=== PATIENT | female | born 1995 | race Caucasian/White ===

== ENCOUNTER 2021-02-27 06:05 | Inpatient (IN) | payer OTHER ==
[2021-02-27 06:31] VITALS: BMI 41.1
[2021-02-27] MEDS ORDERED: ONDANSETRON 4 MG/2 ML VIAL IVPUSH PRN (07:48)
[2021-02-27] MEDS ORDERED: morphine SULFATE/PF 1 MG/2 ML (2cc Syringe - QUVA) EP ONE (07:48)
[2021-02-27] MEDS ORDERED: morphine SULFATE/PF 1 MG/2 ML (2cc Syringe - QUVA) ONE (07:59)
[2021-02-27] MEDS ORDERED: ceFAZolin SODIUM 1 GM VIAL ONE (07:59)
[2021-02-27] MEDS ORDERED: CITRIC ACID/SODIUM CITRATE 30 ML UNIT-DOSE CUP PO ONE (08:07)
[2021-02-27] MEDS ORDERED: ELECTROLYTE-148 SOLN 1,000 ML IV SCH (08:15)
[2021-02-27] MEDS ORDERED: PHENYLEPHRINE HCL 10 MG/1 ML SINGLE DOSE VIAL ONE (08:22)
[2021-02-27] MEDS ORDERED: OXYTOCIN 10 UNITS/ML VIAL ONE ×3 (08:30→08:41)
[2021-02-27] MEDS: OXYTOCIN 20 UNITS in 0.9% NS 20 UNIT/1,000 ML INFUS.BAG IV SCH ×3 (08:50→17:48)
[2021-02-27] MEDS ORDERED: MIDAZOLAM HCL 2 MG/2 ML SINGLE DOSE VIAL ONE (09:03)
[2021-02-27] MEDS ORDERED: SIMETHICONE 80 MG TAB.CHEW (FP) PO PRN (09:16)
[2021-02-27] MEDS ORDERED: SENNOSIDES/DOCUSATE COMBO (SENNA PLUS) TABLET (UD) PO PRN (09:16)
[2021-02-27] MEDS ORDERED: ONDANSETRON 4 MG/2 ML VIAL IVPB PRN (09:16)
[2021-02-27] MEDS ORDERED: IBUPROFEN 800 MG/8 ML IJ IVPB PRN (09:16)
[2021-02-27] MEDS ORDERED: oxyCODONE HCL 5 MG TABLET PO PRN (09:16)
[2021-02-27] MEDS: ACETAMINOPHEN 1000 MG/100 ML VIAL IVPB PRN (16:51)
[2021-02-27] MEDS: CEFAZOLIN 2 GM in DEXTROSE 5%-WATER - 100 ML IVPB SCH ×2 (18:03→23:27)
[2021-02-28] MEDS: ACETAMINOPHEN 1000 MG/100 ML VIAL IVPB PRN (06:18)
[2021-02-28 07:41] LABS: BASO % 0.3 % (0-2.0); EOS % 0.2 % (0-4.5); HEMATOCRIT 35.4 % (32.4-45.2); HEMOGLOBIN 11.9 GM/dL (10.7-15.3); LYMPH % 11.8 % (8-40); MCHC 33.5 g/dl (32.0-36.0); MEAN CELL VOLUME 83.6 fl (80-96); MEAN PLT VOLUME 10.3 fl (7.5-11.1); MONO % 7.4 % (3.8-10.2); NEUT % 80.3 % (42.8-82.8); PLATELET COUNT 148 10^3/uL (134-434); RBC 4.24 M/mm3 (3.60-5.2); RDW 14.1 % (11.6-15.6); WHITE BLOOD COUNT 15.8 K/mm3 (4.0-10.0)
[2021-02-28] MEDS ORDERED: BISACODYL 10 MG SUPP.RECT RC PRN (09:16)
[2021-02-28] MEDS ORDERED: ACETAMINOPHEN 325 MG TABLET (FP) PO PRN (09:20)
[2021-02-28] MEDS: IBUPROFEN 600 MG TABLET (FP) PO PRN (22:45)
[2021-03-01 10:40] VITALS: BP 116/78; PULSE 78; TEMP 97.7
[2021-03-01] MEDS: IBUPROFEN 600 MG TABLET (FP) PO PRN (11:16)
== END 2021-03-01 13:27 | disposition home or self-care (01) | DRG 540 ==
LOC: JLDR 06:05 → J3W 11:00
PROVIDERS: ADMIT Specialist; ATTEND Specialist
PROC: 10D00Z1 Extraction of Products of Conception, Low, Open Approach (ICD-10-PCS; principal; 2021-02-27)
DX: O34.219 Maternal care for unspecified type scar from previous cesarean delivery (principal); Z3A.39 39 weeks gestation of pregnancy; Z37.0 Single live birth
CPT/HCPCS: 36415; 85025; 88307-TC; J0131

== ENCOUNTER 2022-04-17 11:55 | Emergency (ER) | payer OTHER ==
[2022-04-17 12:30] VITALS: BP 110/76; PULSE 99; RESP 18; TEMP 98; BMI 42.9
[2022-04-17] MEDS ORDERED: SODIUM CHLORIDE 0.9% 500 ML INFUS.BAG IV ONE (13:21)
[2022-04-17 15:29] LABS: BASO % 0.2 % (0-2.0); EOS % 1.4 % (0-4.5); HEMOGLOBIN 11.6 GM/dL (10.7-15.3); LYMPH % 15.7 % (8-40); MCH 28.2 pg (25.7-33.7); MCHC 33.3 g/dl (32.0-36.0); MEAN CELL VOLUME 84.6 fl (80-96); MEAN PLT VOLUME 10.2 fl (7.5-11.1); MONO % 6.1 % (3.8-10.2); NEUT % 76.6 % (42.8-82.8); PLATELET COUNT 121 10^3/uL (134-434); RBC 4.14 M/mm3 (3.60-5.2); RDW 14.2 % (11.6-15.6); WHITE BLOOD COUNT 11.6 K/mm3 (4.0-10.0)
[2022-04-17 15:30] LABS: URINE APPEARANCE CLEAR; URINE BILIRUBIN NEGATIVE (NEGATIVE); URINE COLOR YELLOW; URINE GLUCOSE (UA) NEGATIVE (NEGATIVE); URINE KETONE TRACE (NEGATIVE); URINE LEUK ESTERASE NEGATIVE (NEGATIVE); URINE NITRITE NEGATIVE (NEGATIVE); URINE PROTEIN NEGATIVE (NEGATIVE)
[2022-04-17 15:58] LABS: CALCIUM 8.6 mg/dL (8.5-10.1)
[2022-04-17 15:59] LABS: BLOOD UREA NITROGEN 11.5 mg/dL (7-18)
[2022-04-17 16:01] LABS: CREATININE 0.4 mg/dL (0.55-1.3)
[2022-04-17 16:03] LABS: BILIRUBIN,TOTAL 0.2 mg/dL (0.2-1); TOT PROT 6.6 g/dl (6.4-8.2)
== END 2022-04-17 16:45 | disposition home or self-care (01) ==
LOC: JER 11:55
DX: O26.892 Other specified pregnancy related conditions, second trimester (principal); R42 Dizziness and giddiness; R53.83 Other fatigue; Z3A.16 16 weeks gestation of pregnancy
CPT/HCPCS: 36415; 80053; 81003; 84443; 84702; 85025; 87086; 93005; 93010; 99284-25

== ENCOUNTER 2022-09-18 12:02 | Inpatient (IN) | payer OTHER ==
[2022-09-18] MEDS ORDERED: CITRIC ACID/SODIUM CITRATE 30 ML UNIT-DOSE CUP PO ONE (12:03)
[2022-09-18] MEDS ORDERED: ELECTROLYTE-148 SOLN 500 ML IV ONE (12:03)
[2022-09-18 12:58] VITALS: BMI 44.6
[2022-09-18] MEDS ORDERED: OXYTOCIN 20 UNITS in 0.9% NS 40 UNIT/2,000 ML INFUS.BAG IV ONE (13:41)
[2022-09-18] MEDS ORDERED: ceFAZolin SODIUM 1 GM VIAL ONE (13:43)
[2022-09-18] MEDS ORDERED: ONDANSETRON 4 MG/2 ML VIAL ONE (13:43)
[2022-09-18] MEDS ORDERED: morphine SULFATE/PF 1 MG/2 ML (2cc Syringe - QUVA) ONE (13:43)
[2022-09-18] MEDS ORDERED: DEXAMETHASONE SOD PHOSPHATE 4 MG/1 ML VIAL ONE (13:43)
[2022-09-18] MEDS ORDERED: METHYLERGONOVINE MALEATE 0.2 MG/1 ML AMP IM PRN (13:47)
[2022-09-18] MEDS ORDERED: OXYTOCIN 10 UNITS/ML VIAL ONE (13:55)
[2022-09-18] MEDS ORDERED: ONDANSETRON 4 MG/2 ML VIAL IVPUSH PRN (15:29)
[2022-09-18] MEDS: OXYTOCIN 20 UNITS in 0.9% NS 20 UNIT/1,000 ML INFUS.BAG IV SCH (16:45)
[2022-09-18] MEDS: IBUPROFEN 800 MG/8 ML IJ IVPB SCH ×2 (17:18→23:19)
[2022-09-18] MEDS: ACETAMINOPHEN 1000 MG/100 ML BAG IVPB SCH (17:49)
[2022-09-19] MEDS ORDERED: oxyCODONE HCL 5 MG TABLET PO PRN ×2 (01:47)
[2022-09-19] MEDS: OXYTOCIN 20 UNITS in 0.9% NS 20 UNIT/1,000 ML INFUS.BAG IV SCH (02:25)
[2022-09-19] MEDS: ACETAMINOPHEN 1000 MG/100 ML BAG IVPB SCH ×2 (02:29→09:21)
[2022-09-19] MEDS: IBUPROFEN 800 MG/8 ML IJ IVPB SCH ×2 (07:03→14:00)
[2022-09-19 08:29] LABS: BASO % 0.1 % (0-2.0); EOS % 0.1 % (0-4.5); HEMATOCRIT 30.7 % (32.4-45.2); HEMOGLOBIN 10.4 GM/dL (10.7-15.3); LYMPH % 12.9 % (8-40); MCH 27.7 pg (25.7-33.7); MCHC 33.7 g/dl (32.0-36.0); MEAN CELL VOLUME 82.1 fl (80-96); MEAN PLT VOLUME 10.2 fl (7.5-11.1); MONO % 7.3 % (3.8-10.2); NEUT % 79.6 % (42.8-82.8); PLATELET COUNT 128 10^3/uL (134-434); RBC 3.75 M/mm3 (3.60-5.2); RDW 14.3 % (11.6-15.6); WHITE BLOOD COUNT 16.1 K/mm3 (4.0-10.0)
[2022-09-19] MEDS: PRENATAL VITAMINS W/ FOLIC ACID TABLET (FP) PO SCH (09:21)
[2022-09-19] MEDS ORDERED: BISACODYL 10 MG SUPP.RECT RC PRN (13:47)
[2022-09-19] MEDS: SIMETHICONE 80 MG TAB.CHEW (FP) PO PRN (21:58)
[2022-09-19] MEDS: ACETAMINOPHEN 325 MG TABLET (FP) PO PRN (21:59)
[2022-09-19 23:25] VITALS: RESP 18
[2022-09-20] MEDS: PRENATAL VITAMINS W/ FOLIC ACID TABLET (FP) PO SCH (09:13)
[2022-09-20] MEDS: IBUPROFEN 600 MG TABLET (FP) PO PRN ×2 (09:13→17:09)
[2022-09-20] MEDS: SIMETHICONE 80 MG TAB.CHEW (FP) PO PRN ×2 (09:13→17:09)
[2022-09-21] MEDS: SIMETHICONE 80 MG TAB.CHEW (FP) PO PRN (03:17)
[2022-09-21] MEDS: IBUPROFEN 600 MG TABLET (FP) PO PRN (03:17)
[2022-09-21 08:33] LABS: BASO % 0.3 % (0-2.0); HEMATOCRIT 30.9 % (32.4-45.2); LYMPH % 23.3 % (8-40); MCH 27.5 pg (25.7-33.7); MCHC 32.5 g/dl (32.0-36.0); MEAN CELL VOLUME 84.8 fl (80-96); MEAN PLT VOLUME 10.7 fl (7.5-11.1); MONO % 7.9 % (3.8-10.2); NEUT % 66.5 % (42.8-82.8); PLATELET COUNT 97 10^3/uL (134-434); RBC 3.64 M/mm3 (3.60-5.2); RDW 14.4 % (11.6-15.6); WHITE BLOOD COUNT 7.8 K/mm3 (4.0-10.0)
[2022-09-21] MEDS: ACETAMINOPHEN 325 MG TABLET (FP) PO PRN (09:44)
[2022-09-21] MEDS: PRENATAL VITAMINS W/ FOLIC ACID TABLET (FP) PO SCH (09:44)
[2022-09-21 09:52] VITALS: BP 115/78; PULSE 83; TEMP 97.5
== END 2022-09-21 13:55 | disposition home or self-care (01) | DRG 540 ==
LOC: JLDR 12:02 → J3W 16:45
PROVIDERS: ADMIT Obstetrics & Gynecology; ATTEND Obstetrics & Gynecology
PROC: 10D00Z1 Extraction of Products of Conception, Low, Open Approach (ICD-10-PCS; principal; 2022-09-18)
DX: O34.211 Maternal care for low transverse scar from previous cesarean delivery (principal); O99.214 Obesity complicating childbirth; E66.9 Obesity, unspecified; Z3A.38 38 weeks gestation of pregnancy; Z37.0 Single live birth
CPT/HCPCS: 36415; 85025; 86850; 86900; 86901; 94010